=== PATIENT | male | born 1940 | race Caucasian/White ===

== ENCOUNTER 2017-12-29 16:23 | Emergency (ER) | payer MEDICARE, OTHER ==
--- NOTE | 2017-12-29 17:28 | EDM.PDOC ---
ED HPI GENERAL MEDICAL PROBLEM - General Chief Complaint: Cardiovascular Problem Stated Complaint: "FLUID IN MY LEGS" Time Seen by Provider: 12/29/17 17:10 Source of Information: Reports: Patient History Limitations: Reports: No Limitations - History of Present Illness INITIAL COMMENTS - FREE TEXT/NARRATIVE: Patient presents with increased shortness of breath, orthopnea and edema. States he has been doctoring more over the last few weeks. Had a chest xray, CT scan of his abdomen and an echocardiogram. Dr. Johnson recently increased his Lasix to 80 mg BID but he doesn't feel it is helping at all. He is now retaining more fluid in his upper legs and abdomen. States is down 2# but also not eating as has no appetite. Not drinking fluids well either. Does have chronic cough, productive at times. No fever. Admits he is uncomfortable due to the fluid on his abdomen. Per his records, is up about 15# over the last month or so. Relates he was transferred 4 years ago to [facility] for similar symptoms. [place] [address], Creatinine of 1.7, CBC WNL. PMH of CAD, Hyperlipidemia, CHF, Gout, Type 2 DM, Glaucoma, and GERD. Onset: Gradual Duration: Week(s):, Getting Worse Location: Reports: Generalized Quality: Reports: Pressure Associated Symptoms: Reports: Cough, Shortness of Breath, Weakness. Denies: Chest Pain, cough w sputum, Fever/Chills, Nausea/Vomiting Generalized Pain Score (Numeric/FACES): 3 - Related Data Allergies Allergy/AdvReac Type Severity Reaction Status Date / Time No Known Allergies Allergy Verified 12/29/17 16:24 Home Meds: Home Meds Acetaminophen 500 mg PO QID PRN 12/29/17 [History] Allopurinol [Zyloprim] 100 mg PO DAILY 12/29/17 [History] Aspirin [Halfprin] 81 mg PO DAILY 12/29/17 [History] Carvedilol [Coreg] 12.5 mg PO DAILY 12/29/17 [History] Cholecalciferol (Vitamin D3) [Vitamin D3] 2,000 units PO BID 12/29/17 [History] Cyclobenzaprine HCl 10 mg PO QPM PRN 12/29/17 [History] Ferrous Sulfate 325 mg PO BID 12/29/17 [History] Furosemide [Lasix] 80 mg PO BID 12/29/17 [History] Gabapentin [Neurontin] 300 mg PO BID 12/29/17 [History] Hydrocodone/Acetaminophen [Hydrocodon-Acetaminophn 10-325] 1 each PO TID PRN 12/06 [History] Insulin Aspart [NovoLOG] 0 unit SQ WITHMEALSANDBED 12/29/17 [History] Insulin Detemir [Levemir] 15 unit SQ QPM 12/29/17 [History] Latanoprost/Pf [Latanoprost 0.005% Eye Drop] 7.5 ml OP QPM 12/29/17 [History] Naloxone HCl [Evzio] 0.4 mg IJ ASDIRECTED 12/29/17 [History] PARoxetine HCl [Paroxetine HCl] 40 mg PO DAILY 12/29/17 [History] Pantoprazole Sodium [Protonix] 40 mg PO DAILY 12/29/17 [History] Simvastatin [Zocor] 20 mg PO BEDTIME 12/29/17 [History] Terazosin HCl [Terazosin] 4 mg PO QPM 12/29/17 [History] acetaZOLAMIDE [Acetazolamide] 250 mg PO DAILY 12/29/17 [History] cycloSPORINE [Restasis] 1 each OP BID 12/29/17 [History] Past Medical History HEENT History: Reports: Allergic Rhinitis, Cataract, Glaucoma Cardiovascular History: Reports: Aneurysm, CAD, Heart Failure, High Cholesterol , Hypertension, SOB on Exertion Respiratory History: Reports: COPD, Sleep Apnea, SOB Gastrointestinal History: Reports: Cholelithiasis, GERD Genitourinary History: Reports: BPH Musculoskeletal History: Reports: Arthritis, Back Pain, Chronic, Fracture Psychiatric History: Reports: Depression Endocrine/Metabolic History: Reports: IDDM - Past Surgical History HEENT Surgical History: Reports: Cataract Surgery Cardiovascular Surgical History: Reports: Other (See Below) Other Cardiovascular Surgeries/Procedures: had AAA but has a stent Respiratory Surgical History: Reports: None GI Surgical History: Reports: Cholecystectomy, Hernia, Abdominal Musculoskeletal Surgical History: Reports: Other (See Below) Other Musculoskeletal Surgeries/Procedures:: back surgery Social & Family History - Tobacco Use Smoking Status *Q: Former Smoker Used Tobacco, but Quit: Yes Month/Year Tobacco Last Used: 15 years ago - Caffeine Use Caffeine Use: Reports: Coffee ED ROS GENERAL - Review of Systems Review Of Systems: See Below Constitutional: Reports: Chills, Malaise, Weakness, Fatigue, Decreased Appetite. Denies: Fever HEENT: Denies: Ear Pain, Throat Pain, Vertigo Respiratory: Reports: Shortness of Breath. Denies: Cough Cardiovascular: Reports: Edema, Orthopnea. Denies: Chest Pain, Lightheadedness Endocrine: Reports: Fatigue GI/Abdominal: Reports: Abdominal Pain. Denies: Nausea : Reports: No Symptoms Musculoskeletal: Reports: Joint Pain Skin: Reports: Pallor Neurological: Reports: Weakness ED EXAM, GENERAL - Physical Exam Exam: See Below Exam Limited By: No Limitations General Appearance: Alert, WD/WN, Mild Distress Ears: Normal External Exam, Normal TMs Throat/Mouth: Normal Inspection, Normal Oropharynx, Other (mucous membranes dry) Head: Normocephalic Neck: Normal Inspection, Supple, Non-Tender Respiratory/Chest: Decreased Breath Sounds Cardiovascular: Regular Rate, Rhythm GI/Abdominal: Distended, Abnormal Bowel Sounds, Other (abdomen firm, skin taut) Extremities: Pedal Edema (3+ pitting edema in thighs.) Neurological: Alert, Oriented Skin Exam: Warm, Dry, Pallor Course - Vital Signs Last Recorded V/S: Last Vital Signs Temp 96.0 F 12/29/17 16:30 Pulse 78 12/29/17 16:30 Resp 20 12/29/17 16:30 BP 111/76 12/29/17 16:30 Pulse Ox 98 12/29/17 16:30 - Orders/Labs/Meds Orders: Active Orders 24 hr Category Date Time Status CXR [Chest 2V] [CR] Stat Exams 12/29/17 16:48 Taken Labs: Laboratory Tests 12/29/17 12/29/17 12/29/17 Range/Units 16:49 16:49 16:49 WBC 6.1 (5.0-10.0) 10^3/uL RBC 4.98 (4.50-6.00) 10^6/uL Hgb 14.0 (14.0-18.0) g/dL Hct 44.9 (40.0-54.0) % MCV 90.2 (82.0-94.0) fL MCH 28.1 (27.0-32.0) pg MCHC 31.2 L (33.0-38.0) g/dL RDW Coeff of Jared 15.8 H (11.0-15.0) % Plt Count 123 L (150-400) 10^3/uL Neut % (Auto) 76.3 (35-85) % Lymph % (Auto) 11.3 (10-55) % Floyd % (Auto) 10.6 (0-16) % Eos % (Auto) 1.3 (0-5) % Baso % (Auto) 0.5 (0-3) % Neut # (Auto) 4.66 (1.80-7.00) 10^3/uL Lymph # (Auto) 0.69 L (1.00-4.80) 10^3/uL Floyd # (Auto) 0.65 (0.00-0.80) 10^3/uL Eos # (Auto) 0.08 (0.00-0.45) 10^3/uL Baso # (Auto) 0.03 10^3/uL PT 13.1 H (9.7-12.3) SEC INR 1.28 H (0.92-1.18) APTT 31.3 (23.2-32.3) SEC Sodium 139 (136-145) mEq/L Potassium 4.3 (3.5-5.0) mEq/L Chloride 99 (98-106) mEq/L Carbon Dioxide 33 H (21-32) mmol/L BUN 54 H (7-18) mg/dL Creatinine 1.9 H (0.7-1.3) mg/dL Est Cr Clr Drug Dosing 32.50 mL/min Estimated GFR (MDRD) 35 L (>=60) mL/min Glucose 151 H (75-99) mg/dL Calcium 8.9 (8.4-10.1) mg/dL Total Bilirubin 0.8 (0.0-1.0) mg/dL AST 20 (15-37) U/L ALT 26 (12-78) U/L Alkaline Phosphatase 181 H (46-116) U/L Lactate Dehydrogenase 159 (100-190) U/L Creatine Kinase 32 L (35-232) U/L Troponin I 0.022 (0.00-0.06) ng/mL NT-Pro-B Natriuret Pep 35679 H (0-1000) pg/mL Total Protein 7.1 (6.4-8.2) g/dL Albumin 3.6 (3.4-5.0) g/dL - Re-Assessments/Exams Free Text/Narrative Re-Assessment/Exam: 12/29/[address] Johnson. Advised to discuss with hospitalist/senior graphic designer as has not improved despite increased diuretics. Contacted Dr. Quiroz at [facility]. Agreed to accept the patient in transfer. Risks and benefits of transfer discussed with patient and family. Risks of transfer include aircraft/vehicle crash, worsening of condition and even . Benefits of transfer include more specialized cardiac care and intervention. Risks of non transfer include worsening status, more shortness of breath and possibly . Benefits of non transfer include care close to home. patient and family agree to accept the transfer. Departure - Departure Time of Disposition: 18:18 Disposition: DC/Tfer to Acute Hospital 02 Reason for Transfer *Q: Other Condition: Undetermined Clinical Impression: Acute decompensated heart failure Referrals: Kwaku Johnson MD [Primary Care Provider] - Forms: ED Department Discharge Additional Instructions: 1. Patient to transfer BLS to [facility] to Dr. Braun - My Orders Last 24 Hours: My Active Orders 12/29/17 16:48 CXR [Chest 2V] [CR] Stat - Assessment/Plan Last 24 Hours: My Active Orders 12/29/17 16:48 CXR [Chest 2V] [CR] Stat
== END 2017-12-29 19:35 ==
LOC: CC.ED 16:23
DX: I11.0 Hypertensive heart disease with heart failure (principal); I50.9 Heart failure, unspecified; I25.10 Atherosclerotic heart disease of native coronary artery without angina pectoris; M10.9 Gout, unspecified; E11.9 Type 2 diabetes mellitus without complications; Z79.4 Long term (current) use of insulin; Z79.82 Long term (current) use of aspirin; Z79.899 Other long term (current) drug therapy; Z87.891 Personal history of nicotine dependence
CPT/HCPCS: 36415; 71046; 80053; 82550; 83615; 83880; 84484; 85025; 85610; 85730; 93005; 93010; 99284; 99285